=== PATIENT | male | born 1970 | race Caucasian/White ===

== ENCOUNTER 2020-11-29 17:17 | Inpatient (IN) | payer BC, SELFPAY ==
[~2020-11-29] VITALS: Ht 180.3 cm; Wt 90.0 kg
[2020-11-29 17:19] VITALS: Ht 180.3 cm; Wt 90.0 kg
[2020-11-29 19:00] LABS: BASOPHIL % 0.1 % (0.2-1.5); PLATELET COUNT 385 x10^3mcL (152-348); RED CELL DISTRIBUTION WIDTH 15.5 % (12.1-16.2)
[2020-11-29 19:20] LABS: ALKALINE PHOSPHATASE 77 U/L (46-116); ALT/SGPT 28 U/L (16-63); AST/SGOT 46 U/L (15-37); CALCIUM 9.4 mg/dL (8.5-10.1); CARBON DIOXIDE 21.1 mmol/L (21-32); CHLORIDE SERUM 89 mmol/L (98-107); CREATININE SERUM 1.8 mg/dL (0.7-1.3); GFR1 43 mL/min; POTASSIUM SERUM 4.3 mmol/L (3.5-5.1); SODIUM SERUM 127 mmol/L (136-145); TOTAL PROTEIN, SERUM 7.4 g/dL (6.4-8.2)
[2020-11-29 19:28] LABS: ALBUMIN 2.5 g/dL (3.4-5.0)
[2020-11-29 19:30] LABS: GLUCOSE SERUM 547 mg/dL (74-106)
[2020-11-29 19:50] LABS: LACTIC DEHYDROGENASE (LDH) 813 U/L (100-190)
[2020-11-29 20:17] LABS: microscopic required? YES; urine erythrocyte 2+ (NEGATIVE)
[2020-11-30] MEDS ORDERED: TRULICITY0.75 MG/0. SC (06:12)
[2020-11-30] MEDS ORDERED: METFORMIN HCL1000 MG PO (06:12)
[2020-11-30] MEDS ORDERED: ACTOS45 M1 PO (06:12)
[2020-11-30] MEDS ORDERED: FENOFIBRATE145 M1 PO (06:13)
[2020-11-30 16:19] LABS: BASOPHIL % 0.2 % (0.2-1.5); PLATELET COUNT 172 x10^3mcL (152-348)
[2020-11-30 16:24] LABS: RED CELL DISTRIBUTION WIDTH 14.7 % (12.1-16.2)
[2020-11-30 16:36] LABS: CALCIUM 9.3 mg/dL (8.5-10.1); CARBON DIOXIDE 25.7 mmol/L (21-32); CHLORIDE SERUM 94 mmol/L (98-107); CREATININE SERUM 1.1 mg/dL (0.7-1.3); GFR1 > 60 mL/min; GLUCOSE SERUM 296 mg/dL (74-106); MAGNESIUM 2.6 mg/dL (1.8-2.4); PHOSPHOROUS 2.3 mg/dL (2.5-4.9); POTASSIUM SERUM 4.7 mmol/L (3.5-5.1); SODIUM SERUM 130 mmol/L (136-145)
[2020-11-30 21:13] VITALS: BP 120/87
[2020-12-01 00:18] VITALS: BP 124/85
[2020-12-01 06:58] VITALS: BP 120/82
[2020-12-01 07:22] LABS: BASOPHIL % 0.4 % (0.2-1.5); PLATELET COUNT 160 x10^3mcL (152-348)
[2020-12-01 07:57] LABS: ALKALINE PHOSPHATASE 108 U/L (46-116); ALT/SGPT 26 U/L (16-63); AST/SGOT 47 U/L (15-37); CALCIUM 9.1 mg/dL (8.5-10.1); CARBON DIOXIDE 25.1 mmol/L (21-32); CHLORIDE SERUM 95 mmol/L (98-107); CREATININE SERUM 0.9 mg/dL (0.7-1.3); GFR1 > 60 mL/min; GLUCOSE SERUM 228 mg/dL (74-106); POTASSIUM SERUM 4.1 mmol/L (3.5-5.1); SODIUM SERUM 134 mmol/L (136-145); TOTAL PROTEIN, SERUM 6.3 g/dL (6.4-8.2)
[2020-12-01 08:34] LABS: RED CELL DISTRIBUTION WIDTH 15.3 % (12.1-16.2)
[2020-12-01 08:52] LABS: BILIRUBIN DIRECT 0.54 mg/dL (0.0-0.2); BILIRUBIN TOTAL 1.07 mg/dL (0.20-1.00)
[2020-12-01 09:07] VITALS: BP 121/92
[2020-12-01 09:09] LABS: ALBUMIN 2.1 g/dL (3.4-5.0); TOTAL PROTEIN, SERUM 6.1 g/dL (6.4-8.2)
[2020-12-01 12:14] VITALS: BP 120/84
[2020-12-01 17:29] VITALS: BP 107/75
[2020-12-01 20:30] VITALS: BP 115/85
[2020-12-02 06:24] VITALS: BP 125/83
[2020-12-02 09:51] VITALS: BP 115/71
[2020-12-02 12:59] VITALS: BP 112/73
[2020-12-02 13:43] LABS: BILIRUBIN DIRECT 0.63 mg/dL (0.0-0.2); BILIRUBIN TOTAL 1.26 mg/dL (0.20-1.00); TOTAL PROTEIN, SERUM 6.4 g/dL (6.4-8.2)
[2020-12-02 13:50] LABS: ALKALINE PHOSPHATASE 145 U/L (46-116); ALT/SGPT 28 U/L (16-63); AST/SGOT 63 U/L (15-37); BILIRUBIN TOTAL 1.3 mg/dL (0.20-1.00); CALCIUM 9.3 mg/dL (8.5-10.1); CHLORIDE SERUM 95 mmol/L (98-107); GFR1 > 60 mL/min; GLUCOSE SERUM 111 mg/dL (74-106); POTASSIUM SERUM 3.4 mmol/L (3.5-5.1); SODIUM SERUM 135 mmol/L (136-145); TOTAL PROTEIN, SERUM 6.9 g/dL (6.4-8.2)
[2020-12-02 13:53] LABS: ALBUMIN 2.4 g/dL (3.4-5.0); PLATELET COUNT 190 x10^3mcL (152-348)
[2020-12-02 14:00] LABS: ALBUMIN 2.4 g/dL (3.4-5.0)
[2020-12-02 14:09] LABS: RED CELL DISTRIBUTION WIDTH 15.4 % (12.1-16.2)
[2020-12-02 17:11] VITALS: BP 109/84
[2020-12-02 17:15] LABS: BAND NEUTROPHIL 7 % (0-10); BASOPHIL 0 % (0-2); MONOCYTE 3 % (0-7); SEGMENTED NEUTROPHILS 88 % (37-75)
[2020-12-02 17:17] LABS: PLATELET MORPHOLOGY PLATELETS NORMAL; rbc morphology (normal/abnorm) NORMAL (NORMAL)
[2020-12-02 21:54] VITALS: BP 102/75
[2020-12-03 05:05] VITALS: BP 113/80
[2020-12-03 09:23] VITALS: BP 103/76
[2020-12-03 10:03] LABS: ALKALINE PHOSPHATASE 123 U/L (46-116); ALT/SGPT 27 U/L (16-63); AST/SGOT 56 U/L (15-37); BILIRUBIN TOTAL 1.5 mg/dL (0.20-1.00); CALCIUM 9.1 mg/dL (8.5-10.1); CARBON DIOXIDE 30.4 mmol/L (21-32); CHLORIDE SERUM 94 mmol/L (98-107); GLUCOSE SERUM 92 mg/dL (74-106); POTASSIUM SERUM 3.9 mmol/L (3.5-5.1); SODIUM SERUM 135 mmol/L (136-145); TOTAL PROTEIN, SERUM 6.2 g/dL (6.4-8.2)
[2020-12-03 10:09] LABS: PLATELET COUNT 198 x10^3mcL (152-348)
[2020-12-03 10:10] LABS: ALBUMIN 2.4 g/dL (3.4-5.0)
[2020-12-03 10:28] LABS: RED CELL DISTRIBUTION WIDTH 15.7 % (12.1-16.2)
[2020-12-03 10:37] LABS: BILIRUBIN DIRECT 0.57 mg/dL (0.0-0.2); BILIRUBIN TOTAL 1.6 mg/dL (0.20-1.00)
[2020-12-03 10:40] LABS: ALBUMIN 2.3 g/dL (3.4-5.0)
[2020-12-03 11:02] LABS: CREATININE SERUM 0.9 mg/dL (0.7-1.3); GFR1 > 60 mL/min
[2020-12-03 13:35] VITALS: BP 96/74
[2020-12-03 18:19] LABS: BAND NEUTROPHIL 7 % (0-10); BASOPHIL 0 % (0-2); MONOCYTE 2 % (0-7); SEGMENTED NEUTROPHILS 86 % (37-75)
[2020-12-03 18:22] LABS: PLATELET MORPHOLOGY PLATELETS NORMAL; rbc morphology (normal/abnorm) NORMAL (NORMAL)
[2020-12-03 22:22] VITALS: BP 110/87
[2020-12-04 06:11] VITALS: BP 110/78
[2020-12-04 08:45] LABS: ALKALINE PHOSPHATASE 114 U/L (46-116); ALT/SGPT 23 U/L (16-63); AST/SGOT 43 U/L (15-37); BILIRUBIN TOTAL 1.1 mg/dL (0.20-1.00); CALCIUM 9.6 mg/dL (8.5-10.1); CARBON DIOXIDE 32.7 mmol/L (21-32); CHLORIDE SERUM 93 mmol/L (98-107); CREATININE SERUM 0.9 mg/dL (0.7-1.3); GFR1 > 60 mL/min; GLUCOSE SERUM 119 mg/dL (74-106); POTASSIUM SERUM 3.2 mmol/L (3.5-5.1); SODIUM SERUM 132 mmol/L (136-145); TOTAL PROTEIN, SERUM 6.8 g/dL (6.4-8.2)
[2020-12-04 08:47] LABS: ALBUMIN 2.2 g/dL (3.4-5.0)
[2020-12-04 09:04] LABS: BASOPHIL % 0.2 % (0.2-1.5); PLATELET COUNT 242 x10^3mcL (152-348)
[2020-12-04 09:06] VITALS: BP 108/75
[2020-12-04 09:22] LABS: BILIRUBIN DIRECT 0.57 mg/dL (0.0-0.2); BILIRUBIN TOTAL 1.1 mg/dL (0.20-1.00); TOTAL PROTEIN, SERUM 6.3 g/dL (6.4-8.2)
[2020-12-04 09:40] LABS: ALBUMIN 2.2 g/dL (3.4-5.0)
[2020-12-04 11:36] LABS: RED CELL DISTRIBUTION WIDTH 15.8 % (12.1-16.2)
[2020-12-04 12:33] VITALS: BP 110/80
[2020-12-04 18:21] VITALS: BP 95/64
[2020-12-04 20:43] VITALS: BP 102/75
[2020-12-05 05:06] VITALS: BP 98/73
[2020-12-05 08:35] LABS: PLATELET COUNT 206 x10^3mcL (152-348)
[2020-12-05 08:47] LABS: RED CELL DISTRIBUTION WIDTH 15.7 % (12.1-16.2)
[2020-12-05 09:05] LABS: ALKALINE PHOSPHATASE 114 U/L (46-116); ALT/SGPT 30 U/L (16-63); AST/SGOT 47 U/L (15-37); BILIRUBIN TOTAL 1.16 mg/dL (0.20-1.00); CALCIUM 9.6 mg/dL (8.5-10.1); CARBON DIOXIDE 31.9 mmol/L (21-32); CHLORIDE SERUM 97 mmol/L (98-107); GFR1 > 60 mL/min; GLUCOSE SERUM 171 mg/dL (74-106); POTASSIUM SERUM 4.9 mmol/L (3.5-5.1); SODIUM SERUM 137 mmol/L (136-145)
[2020-12-05 09:14] LABS: ALBUMIN 2.1 g/dL (3.4-5.0)
[2020-12-05 10:05] VITALS: BP 99/73
[2020-12-05 13:20] LABS: BAND NEUTROPHIL 3 % (0-10); MONOCYTE 4 % (0-7); PLATELET MORPHOLOGY PLATELETS NORMAL; SEGMENTED NEUTROPHILS 88 % (37-75); rbc morphology (normal/abnorm) NORMAL (NORMAL)
[2020-12-05 13:22] VITALS: BP 94/71
[2020-12-05 23:22] VITALS: BP 97/65
[2020-12-06 05:49] VITALS: BP 97/68
[2020-12-06 07:51] LABS: PLATELET COUNT 248 x10^3mcL (152-348)
[2020-12-06 07:59] LABS: RED CELL DISTRIBUTION WIDTH 15.5 % (12.1-16.2)
[2020-12-06 08:20] VITALS: BP 122/76
[2020-12-06 08:43] LABS: CALCIUM 9.6 mg/dL (8.5-10.1); CARBON DIOXIDE 29.5 mmol/L (21-32); CHLORIDE SERUM 96 mmol/L (98-107); GFR1 > 60 mL/min; GLUCOSE SERUM 159 mg/dL (74-106); POTASSIUM SERUM 4.3 mmol/L (3.5-5.1); SODIUM SERUM 136 mmol/L (136-145)
[2020-12-06 13:15] LABS: BAND NEUTROPHIL 1 % (0-10); MONOCYTE 4 % (0-7); SEGMENTED NEUTROPHILS 89 % (37-75)
[2020-12-06 13:35] VITALS: BP 85/58
[2020-12-06 14:06] LABS: rbc morphology (normal/abnorm) NORMAL (NORMAL)
[2020-12-06 18:37] VITALS: BP 117/73
[2020-12-06 20:53] VITALS: BP 106/77
[2020-12-07 08:17] LABS: BASOPHIL % 0.2 % (0.2-1.5)
[2020-12-07 08:20] LABS: PLATELET COUNT 257 x10^3mcL (152-348)
[2020-12-07 08:38] LABS: RED CELL DISTRIBUTION WIDTH 15.6 % (12.1-16.2)
[2020-12-07 09:02] VITALS: BP 135/84
[2020-12-07 09:18] LABS: CALCIUM 9.8 mg/dL (8.5-10.1); CARBON DIOXIDE 25.2 mmol/L (21-32); CHLORIDE SERUM 95 mmol/L (98-107); CREATININE SERUM 1.1 mg/dL (0.7-1.3); GFR1 > 60 mL/min; GLUCOSE SERUM 211 mg/dL (74-106); POTASSIUM SERUM 3.6 mmol/L (3.5-5.1); SODIUM SERUM 135 mmol/L (136-145)
[2020-12-07 12:58] VITALS: BP 111/77
[2020-12-07 16:18] VITALS: BP 115/70
[2020-12-07 20:41] VITALS: BP 106/82
[2020-12-08 04:48] VITALS: BP 108/74
[2020-12-08 09:26] VITALS: BP 102/76
[2020-12-08 10:25] LABS: CALCIUM 10.6 mg/dL (8.5-10.1); CARBON DIOXIDE 31.9 mmol/L (21-32); CHLORIDE SERUM 95 mmol/L (98-107); GFR1 > 60 mL/min; GLUCOSE SERUM 230 mg/dL (74-106); POTASSIUM SERUM 3.7 mmol/L (3.5-5.1); SODIUM SERUM 136 mmol/L (136-145)
[2020-12-08 11:37] LABS: C REACTIVE PROTEIN 28.4 mg/dL (<=0.9)
[2020-12-08 14:02] VITALS: BP 103/77
[2020-12-08 15:23] LABS: BASOPHIL % 1.2 % (0.2-1.5); PLATELET COUNT 241 x10^3mcL (152-348)
[2020-12-08 15:44] LABS: RED CELL DISTRIBUTION WIDTH 16.1 % (12.1-16.2)
[2020-12-08 18:25] VITALS: BP 101/77
[2020-12-08 21:45] VITALS: BP 122/74
[2020-12-09 07:35] VITALS: BP 90/64
[2020-12-09 11:30] VITALS: BP 128/77
[2020-12-09 12:00] VITALS: BP 101/57
[2020-12-09 12:06] LABS: PLATELET COUNT 211 x10^3mcL (152-348)
[2020-12-09 12:08] LABS: RED CELL DISTRIBUTION WIDTH 15.9 % (12.1-16.2)
[2020-12-09 12:18] LABS: CALCIUM 9.7 mg/dL (8.5-10.1); CARBON DIOXIDE 31.4 mmol/L (21-32); CREATININE SERUM 1.4 mg/dL (0.7-1.3); POTASSIUM SERUM 4.9 mmol/L (3.5-5.1)
[2020-12-09 13:56] LABS: BAND NEUTROPHIL 4 % (0-10); MONOCYTE 3 % (0-7); PLATELET MORPHOLOGY PLATELETS NORMAL; SEGMENTED NEUTROPHILS 89 % (37-75); rbc morphology (normal/abnorm) ABNORMAL (NORMAL)
[2020-12-09 14:32] VITALS: BP 96/60
[2020-12-09 15:28] VITALS: BP 99/65
[2020-12-09 20:00] VITALS: BP 105/66
[2020-12-10] VITALS (9 sets, daily range): BP systolic 91–114; BP diastolic 55–73
[2020-12-10 06:30] LABS: CALCIUM 9.5 mg/dL (8.5-10.1); CARBON DIOXIDE 35.2 mmol/L (21-32); CREATININE SERUM 1.4 mg/dL (0.7-1.3); POTASSIUM SERUM 4.6 mmol/L (3.5-5.1)
[2020-12-10 06:33] LABS: BASOPHIL % 0.1 % (0.2-1.5); PLATELET COUNT 156 x10^3mcL (152-348)
[2020-12-10 18:12] LABS: UA SPECIFIC GRAVITY >=1.030 (1.005-1.035); microscopic required? YES; urine erythrocyte 3+ (NEGATIVE)
[2020-12-11] VITALS (7 sets, daily range): BP systolic 96–121; BP diastolic 69–78
[2020-12-11 06:55] LABS: PLATELET COUNT 206 x10^3mcL (152-348)
[2020-12-11 07:10] LABS: CALCIUM 9.3 mg/dL (8.5-10.1); CARBON DIOXIDE 31.7 mmol/L (21-32); POTASSIUM SERUM 4.8 mmol/L (3.5-5.1)
[2020-12-11 07:17] LABS: CREATININE SERUM 4.4 mg/dL (0.7-1.3)
[2020-12-11 07:59] LABS: RED CELL DISTRIBUTION WIDTH 16.1 % (12.1-16.2)
[2020-12-11 13:30] LABS: ATYPICAL LYMPH 5 %; SEGMENTED NEUTROPHILS 92 % (37-75)
[2020-12-11 13:31] LABS: rbc morphology (normal/abnorm) ABNORMAL (NORMAL)
[2020-12-12] VITALS (8 sets, daily range): BP systolic 97–128; BP diastolic 67–92
[2020-12-12 07:24] LABS: BASOPHIL % 0.1 % (0.2-1.5); PLATELET COUNT 146 x10^3mcL (152-348)
[2020-12-12 07:28] LABS: RED CELL DISTRIBUTION WIDTH 15.9 % (12.1-16.2)
[2020-12-12 07:53] LABS: CALCIUM 9.7 mg/dL (8.5-10.1); CARBON DIOXIDE 35.8 mmol/L (21-32); CREATININE SERUM 1.9 mg/dL (0.7-1.3); POTASSIUM SERUM 3.8 mmol/L (3.5-5.1)
[2020-12-12 17:54] LABS: BILIRUBIN DIRECT 0.68 mg/dL (0.0-0.2); BILIRUBIN TOTAL 1.22 mg/dL (0.20-1.00)
[2020-12-12 17:56] LABS: ALBUMIN 2.9 g/dL (3.4-5.0); TOTAL PROTEIN, SERUM 5.9 g/dL (6.4-8.2)
[2020-12-13] VITALS (8 sets, daily range): BP systolic 94–130; BP diastolic 63–78
[2020-12-13 07:08] LABS: BASOPHIL % 0.2 % (0.2-1.5)
[2020-12-13 07:43] LABS: CHLORIDE SERUM 111 mmol/L (98-107); GFR1 > 60 mL/min; GLUCOSE SERUM 258 mg/dL (74-106); MAGNESIUM 2.8 mg/dL (1.8-2.4); PHOSPHOROUS 2.4 mg/dL (2.5-4.9); SODIUM SERUM 152 mmol/L (136-145)
[2020-12-13 08:24] LABS: CARBON DIOXIDE 38.9 mmol/L (21-32)
[2020-12-13 09:19] LABS: PLATELET COUNT 86 x10^3mcL (152-348); RED CELL DISTRIBUTION WIDTH 15.6 % (12.1-16.2)
[2020-12-14] VITALS (7 sets, daily range): BP systolic 95–143; BP diastolic 68–97
[2020-12-14 06:45] LABS: ALKALINE PHOSPHATASE 98 U/L (46-116); ALT/SGPT 18 U/L (16-63); AST/SGOT 18 U/L (15-37); BILIRUBIN TOTAL 0.71 mg/dL (0.20-1.00); CHLORIDE SERUM 106 mmol/L (98-107); CREATININE SERUM 0.9 mg/dL (0.7-1.3); GFR1 > 60 mL/min; GLUCOSE SERUM 343 mg/dL (74-106); MAGNESIUM 2.5 mg/dL (1.8-2.4); PHOSPHOROUS 2.5 mg/dL (2.5-4.9); POTASSIUM SERUM 4.4 mmol/L (3.5-5.1); SODIUM SERUM 147 mmol/L (136-145); TOTAL PROTEIN, SERUM 6.2 g/dL (6.4-8.2)
[2020-12-14 06:50] LABS: ALBUMIN 2.4 g/dL (3.4-5.0)
[2020-12-14 06:52] LABS: CARBON DIOXIDE 40.4 mmol/L (21-32)
[2020-12-14 07:08] LABS: BASOPHIL % 0.3 % (0.2-1.5)
[2020-12-14 07:38] LABS: C REACTIVE PROTEIN 22.2 mg/dL (<=0.9)
[2020-12-14 08:16] LABS: PLATELET COUNT 127 x10^3mcL (152-348)
[2020-12-15] VITALS (10 sets, daily range): BP systolic 94–122; BP diastolic 66–75
[2020-12-15 06:24] LABS: BASOPHIL % 0.7 % (0.2-1.5); PLATELET COUNT 160 x10^3mcL (152-348)
[2020-12-15 06:59] LABS: ALKALINE PHOSPHATASE 100 U/L (46-116); ALT/SGPT 18 U/L (16-63); AST/SGOT 15 U/L (15-37); BILIRUBIN TOTAL 0.59 mg/dL (0.20-1.00); CALCIUM 9.7 mg/dL (8.5-10.1); CHLORIDE SERUM 107 mmol/L (98-107); CREATININE SERUM 0.8 mg/dL (0.7-1.3); GFR1 > 60 mL/min; GLUCOSE SERUM 238 mg/dL (74-106); MAGNESIUM 2.6 mg/dL (1.8-2.4); PHOSPHOROUS 3.4 mg/dL (2.5-4.9); SODIUM SERUM 149 mmol/L (136-145); TOTAL PROTEIN, SERUM 6.2 g/dL (6.4-8.2)
[2020-12-15 07:18] LABS: ALBUMIN 2.4 g/dL (3.4-5.0)
[2020-12-15 07:20] LABS: CARBON DIOXIDE 41.8 mmol/L (21-32)
[2020-12-15 07:39] LABS: RED CELL DISTRIBUTION WIDTH 15.4 % (12.1-16.2)
[2020-12-15 09:53] LABS: C REACTIVE PROTEIN 13.1 mg/dL (<=0.9)
[2020-12-16] VITALS (8 sets, daily range): BP systolic 97–110; BP diastolic 61–72
[2020-12-16 06:09] LABS: PLATELET COUNT 169 x10^3mcL (152-348)
[2020-12-16 06:16] LABS: RED CELL DISTRIBUTION WIDTH 15.4 % (12.1-16.2)
[2020-12-16 06:54] LABS: CALCIUM 9.6 mg/dL (8.5-10.1); CHLORIDE SERUM 106 mmol/L (98-107); CREATININE SERUM 0.6 mg/dL (0.7-1.3); GFR1 > 60 mL/min; GLUCOSE SERUM 171 mg/dL (74-106); MAGNESIUM 2.4 mg/dL (1.8-2.4); POTASSIUM SERUM 4.3 mmol/L (3.5-5.1); SODIUM SERUM 148 mmol/L (136-145)
[2020-12-16 06:57] LABS: CARBON DIOXIDE 41.3 mmol/L (21-32)
[2020-12-16 13:53] LABS: BAND NEUTROPHIL 3 % (0-10); BASOPHIL 0 % (0-2); MONOCYTE 4 % (0-7); SEGMENTED NEUTROPHILS 92 % (37-75)
[2020-12-16 13:55] LABS: rbc morphology (normal/abnorm) ABNORMAL (NORMAL)
[2020-12-17] VITALS (7 sets, daily range): BP systolic 97–117; BP diastolic 65–78
[2020-12-17 11:15] LABS: PLATELET COUNT 195 x10^3mcL (152-348)
[2020-12-17 11:21] LABS: RED CELL DISTRIBUTION WIDTH 15.3 % (12.1-16.2)
[2020-12-17 12:19] LABS: CHLORIDE SERUM 106 mmol/L (98-107); CREATININE SERUM 0.6 mg/dL (0.7-1.3); GFR1 > 60 mL/min; GLUCOSE SERUM 193 mg/dL (74-106); POTASSIUM SERUM 4.2 mmol/L (3.5-5.1); SODIUM SERUM 147 mmol/L (136-145)
[2020-12-17 12:25] LABS: CARBON DIOXIDE 42.8 mmol/L (21-32)
[2020-12-17 13:44] LABS: BAND NEUTROPHIL 0 % (0-10); BASOPHIL 0 % (0-2); MONOCYTE 5 % (0-7); SEGMENTED NEUTROPHILS 90 % (37-75); rbc morphology (normal/abnorm) ABNORMAL (NORMAL)
[2020-12-18] VITALS (7 sets, daily range): BP systolic 92–129; BP diastolic 67–85
[2020-12-18 07:15] LABS: ALKALINE PHOSPHATASE 107 U/L (46-116); ALT/SGPT 30 U/L (16-63); AST/SGOT 40 U/L (15-37); BILIRUBIN TOTAL 0.6 mg/dL (0.20-1.00); C REACTIVE PROTEIN 1.5 mg/dL (<=0.9); CHLORIDE SERUM 101 mmol/L (98-107); CREATININE SERUM 0.6 mg/dL (0.7-1.3); GFR1 > 60 mL/min; GLUCOSE SERUM 175 mg/dL (74-106); MAGNESIUM 2.2 mg/dL (1.8-2.4); PHOSPHOROUS 2.4 mg/dL (2.5-4.9); POTASSIUM SERUM 4.1 mmol/L (3.5-5.1); SODIUM SERUM 143 mmol/L (136-145)
[2020-12-18 07:17] LABS: PLATELET COUNT 265 x10^3mcL (152-348)
[2020-12-18 07:24] LABS: ALBUMIN 2.5 g/dL (3.4-5.0); TOTAL PROTEIN, SERUM 5.8 g/dL (6.4-8.2)
[2020-12-18 07:27] LABS: CARBON DIOXIDE 43.3 mmol/L (21-32)
[2020-12-18 07:53] LABS: RED CELL DISTRIBUTION WIDTH 15.3 % (12.1-16.2)
[2020-12-18 14:35] LABS: BAND NEUTROPHIL 3 % (0-10); MONOCYTE 4 % (0-7); PLATELET MORPHOLOGY PLATELETS NORMAL; SEGMENTED NEUTROPHILS 87 % (37-75); rbc morphology (normal/abnorm) ABNORMAL (NORMAL)
[2020-12-19] VITALS (7 sets, daily range): BP systolic 86–155; BP diastolic 52–95
[2020-12-19 06:31] LABS: PLATELET COUNT 202 x10^3mcL (152-348)
[2020-12-19 06:54] LABS: RED CELL DISTRIBUTION WIDTH 15.6 % (12.1-16.2)
[2020-12-19 07:09] LABS: CHLORIDE SERUM 99 mmol/L (98-107); POTASSIUM SERUM 3.6 mmol/L (3.5-5.1); SODIUM SERUM 139 mmol/L (136-145)
[2020-12-19 07:30] LABS: CARBON DIOXIDE 37.5 mmol/L (21-32); CREATININE SERUM 0.5 mg/dL (0.7-1.3); GFR1 > 60 mL/min; GLUCOSE SERUM 171 mg/dL (74-106); PHOSPHOROUS 2.6 mg/dL (2.5-4.9)
[2020-12-20] VITALS (9 sets, daily range): BP systolic 13–132; BP diastolic 57–76
[2020-12-20 07:10] LABS: ALKALINE PHOSPHATASE 108 U/L (46-116); ALT/SGPT 36 U/L (16-63); AST/SGOT 44 U/L (15-37); BILIRUBIN TOTAL 0.69 mg/dL (0.20-1.00); C REACTIVE PROTEIN 1.3 mg/dL (<=0.9); CARBON DIOXIDE 37.8 mmol/L (21-32); CHLORIDE SERUM 98 mmol/L (98-107); CREATININE SERUM 0.6 mg/dL (0.7-1.3); GFR1 > 60 mL/min; GLUCOSE SERUM 208 mg/dL (74-106); MAGNESIUM 2.1 mg/dL (1.8-2.4); PHOSPHOROUS 2.8 mg/dL (2.5-4.9); POTASSIUM SERUM 3.7 mmol/L (3.5-5.1); SODIUM SERUM 136 mmol/L (136-145)
[2020-12-20 07:37] LABS: PLATELET COUNT 220 x10^3mcL (152-348)
[2020-12-20 08:07] LABS: BAND NEUTROPHIL 1 % (0-10); SEGMENTED NEUTROPHILS 83 % (37-75)
[2020-12-20 08:08] LABS: BASOPHIL 0 % (0-2); MONOCYTE 3 % (0-7); rbc morphology (normal/abnorm) ABNORMAL (NORMAL)
[2020-12-20 14:23] LABS: BAND NEUTROPHIL 3 % (0-10); MONOCYTE 2 % (0-7); PLATELET MORPHOLOGY PLATELETS NORMAL; SEGMENTED NEUTROPHILS 89 % (37-75); rbc morphology (normal/abnorm) ABNORMAL (NORMAL)
[2020-12-21] VITALS (11 sets, daily range): BP systolic 88–110; BP diastolic 55–69
[2020-12-21 06:20] LABS: PLATELET COUNT 157 x10^3mcL (152-348)
[2020-12-21 06:41] LABS: CALCIUM 8.3 mg/dL (8.5-10.1); CARBON DIOXIDE 38.9 mmol/L (21-32); CHLORIDE SERUM 100 mmol/L (98-107); CREATININE SERUM 0.5 mg/dL (0.7-1.3); GFR1 > 60 mL/min; GLUCOSE SERUM 257 mg/dL (74-106); MAGNESIUM 2.3 mg/dL (1.8-2.4); PHOSPHOROUS 2.8 mg/dL (2.5-4.9); POTASSIUM SERUM 4.1 mmol/L (3.5-5.1); SODIUM SERUM 139 mmol/L (136-145)
[2020-12-21 12:35] LABS: SEGMENTED NEUTROPHILS 90 % (37-75)
[2020-12-21 12:36] LABS: MONOCYTE 5 % (0-7); rbc morphology (normal/abnorm) ABNORMAL (NORMAL)
[2020-12-22] VITALS (11 sets, daily range): BP systolic 100–132; BP diastolic 71–93
[2020-12-22 06:27] LABS: BASOPHIL % 0.3 % (0.2-1.5); PLATELET COUNT 180 x10^3mcL (152-348)
[2020-12-22 06:41] LABS: ALKALINE PHOSPHATASE 99 U/L (46-116); ALT/SGPT 28 U/L (16-63); AST/SGOT 20 U/L (15-37); BILIRUBIN TOTAL 0.49 mg/dL (0.20-1.00); C REACTIVE PROTEIN 6.8 mg/dL (<=0.9); CALCIUM 8.3 mg/dL (8.5-10.1); CHLORIDE SERUM 99 mmol/L (98-107); CREATININE SERUM 0.5 mg/dL (0.7-1.3); GFR1 > 60 mL/min; GLUCOSE SERUM 236 mg/dL (74-106); MAGNESIUM 1.9 mg/dL (1.8-2.4); PHOSPHOROUS 2.8 mg/dL (2.5-4.9); POTASSIUM SERUM 4.1 mmol/L (3.5-5.1); SODIUM SERUM 140 mmol/L (136-145)
[2020-12-22 07:05] LABS: ALBUMIN 1.9 g/dL (3.4-5.0)
[2020-12-22 07:07] LABS: CARBON DIOXIDE 40.3 mmol/L (21-32)
[2020-12-22 08:20] LABS: RED CELL DISTRIBUTION WIDTH 16.5 % (12.1-16.2)
[2020-12-23] VITALS (10 sets, daily range): BP systolic 100–129; BP diastolic 69–91
[2020-12-23 06:26] LABS: BASOPHIL % 0.4 % (0.2-1.5); PLATELET COUNT 231 x10^3mcL (152-348)
[2020-12-23 06:34] LABS: CALCIUM 7.3 mg/dL (8.5-10.1); CARBON DIOXIDE 38.2 mmol/L (21-32); CHLORIDE SERUM 103 mmol/L (98-107); CREATININE SERUM 0.4 mg/dL (0.7-1.3); GFR1 > 60 mL/min; GLUCOSE SERUM 196 mg/dL (74-106); MAGNESIUM 1.9 mg/dL (1.8-2.4); PHOSPHOROUS 2.1 mg/dL (2.5-4.9); POTASSIUM SERUM 3.7 mmol/L (3.5-5.1); SODIUM SERUM 141 mmol/L (136-145)
[2020-12-23 07:10] LABS: RED CELL DISTRIBUTION WIDTH 17.2 % (12.1-16.2)
[2020-12-24] VITALS (11 sets, daily range): BP systolic 108–136; BP diastolic 74–87
[2020-12-24 07:03] LABS: BASOPHIL % 0.5 % (0.2-1.5); PLATELET COUNT 227 x10^3mcL (152-348)
[2020-12-24 07:19] LABS: CALCIUM 7.6 mg/dL (8.5-10.1); CHLORIDE SERUM 97 mmol/L (98-107); CREATININE SERUM 0.4 mg/dL (0.7-1.3); GFR1 > 60 mL/min; GLUCOSE SERUM 223 mg/dL (74-106); POTASSIUM SERUM 4.1 mmol/L (3.5-5.1); SODIUM SERUM 138 mmol/L (136-145)
[2020-12-24 07:30] LABS: CARBON DIOXIDE 43.5 mmol/L (21-32)
[2020-12-25] VITALS: BP 100/59
[2020-12-25 02:40] VITALS: BP 97/68
[2020-12-25 04:00] VITALS: BP 99/69
[2020-12-25 06:30] LABS: PLATELET COUNT 287 x10^3mcL (152-348)
[2020-12-25 06:33] LABS: RED CELL DISTRIBUTION WIDTH 18.4 % (12.1-16.2)
[2020-12-25 07:16] LABS: C REACTIVE PROTEIN 4.4 mg/dL (<=0.9); CALCIUM 8.7 mg/dL (8.5-10.1); CHLORIDE SERUM 98 mmol/L (98-107); CREATININE SERUM 0.4 mg/dL (0.7-1.3); GFR1 > 60 mL/min; GLUCOSE SERUM 123 mg/dL (74-106); MAGNESIUM 2.2 mg/dL (1.8-2.4); PHOSPHOROUS 2.4 mg/dL (2.5-4.9); POTASSIUM SERUM 3.7 mmol/L (3.5-5.1); SODIUM SERUM 139 mmol/L (136-145)
[2020-12-25 07:38] LABS: CARBON DIOXIDE 41.1 mmol/L (21-32)
[2020-12-25 09:25] VITALS: BP 123/79
[2020-12-25 11:37] LABS: rbc morphology (normal/abnorm) ABNORMAL (NORMAL)
[2020-12-25 11:41] LABS: PLATELET MORPHOLOGY PLATELETS NORMAL
[2020-12-25 11:42] LABS: BAND NEUTROPHIL 5 % (0-10); MONOCYTE 5 % (0-7); SEGMENTED NEUTROPHILS 86 % (37-75)
[2020-12-25 14:05] VITALS: BP 115/75
[2020-12-25 20:00] VITALS: BP 119/86; BP 126/81
[2020-12-26] VITALS (10 sets, daily range): BP systolic 87–154; BP diastolic 54–98
[2020-12-26 06:03] LABS: BASOPHIL % 0.8 % (0.2-1.5); PLATELET COUNT 279 x10^3mcL (152-348)
[2020-12-26 06:25] LABS: RED CELL DISTRIBUTION WIDTH 18.3 % (12.1-16.2)
[2020-12-26 06:34] LABS: C REACTIVE PROTEIN 8.5 mg/dL (<=0.9); CALCIUM 8.4 mg/dL (8.5-10.1); CHLORIDE SERUM 99 mmol/L (98-107); CREATININE SERUM 0.4 mg/dL (0.7-1.3); GFR1 > 60 mL/min; GLUCOSE SERUM 83 mg/dL (74-106); PHOSPHOROUS 2.7 mg/dL (2.5-4.9); POTASSIUM SERUM 3.2 mmol/L (3.5-5.1); SODIUM SERUM 138 mmol/L (136-145)
[2020-12-26 06:36] LABS: CARBON DIOXIDE 43.8 mmol/L (21-32)
[2020-12-27] VITALS (11 sets, daily range): BP systolic 102–151; BP diastolic 45–88
[2020-12-27 06:09] LABS: BASOPHIL % 0.5 % (0.2-1.5); PLATELET COUNT 245 x10^3mcL (152-348)
[2020-12-27 06:33] LABS: CALCIUM 8.6 mg/dL (8.5-10.1); CHLORIDE SERUM 99 mmol/L (98-107); CREATININE SERUM 0.5 mg/dL (0.7-1.3); GFR1 > 60 mL/min; GLUCOSE SERUM 181 mg/dL (74-106); MAGNESIUM 2.1 mg/dL (1.8-2.4); PHOSPHOROUS 3.9 mg/dL (2.5-4.9); POTASSIUM SERUM 5.3 mmol/L (3.5-5.1); SODIUM SERUM 140 mmol/L (136-145)
[2020-12-27 06:50] LABS: RED CELL DISTRIBUTION WIDTH 18.3 % (12.1-16.2)
[2020-12-27 07:13] LABS: ALBUMIN 1.6 g/dL (3.4-5.0)
[2020-12-27 07:15] LABS: CARBON DIOXIDE 43.6 mmol/L (21-32)
[2020-12-27 11:39] LABS: C REACTIVE PROTEIN 32.8 mg/dL (<=0.9)
[2020-12-27 14:56] LABS: CALCIUM 8.4 mg/dL (8.5-10.1); CHLORIDE SERUM 100 mmol/L (98-107); CREATININE SERUM 0.4 mg/dL (0.7-1.3); GFR1 > 60 mL/min; GLUCOSE SERUM 130 mg/dL (74-106); POTASSIUM SERUM 4.2 mmol/L (3.5-5.1); SODIUM SERUM 139 mmol/L (136-145)
[2020-12-27 15:09] LABS: CARBON DIOXIDE 44.9 mmol/L (21-32)
[2020-12-27 22:44] LABS: CALCIUM 8.8 mg/dL (8.5-10.1); CHLORIDE SERUM 98 mmol/L (98-107); CREATININE SERUM 0.4 mg/dL (0.7-1.3); GFR1 > 60 mL/min; GLUCOSE SERUM 154 mg/dL (74-106); SODIUM SERUM 138 mmol/L (136-145)
[2020-12-27 22:54] LABS: CARBON DIOXIDE > 45.0 mmol/L (21-32)
[2020-12-28] VITALS (12 sets, daily range): BP systolic 81–124; BP diastolic 46–81
[2020-12-28 06:34] LABS: BASOPHIL % 0.6 % (0.2-1.5); PLATELET COUNT 215 x10^3mcL (152-348)
[2020-12-28 06:42] LABS: RED CELL DISTRIBUTION WIDTH 18.8 % (12.1-16.2)
[2020-12-28 06:52] LABS: CALCIUM 8.1 mg/dL (8.5-10.1); CHLORIDE SERUM 97 mmol/L (98-107); CREATININE SERUM 0.4 mg/dL (0.7-1.3); GFR1 > 60 mL/min; MAGNESIUM 1.8 mg/dL (1.8-2.4); PHOSPHOROUS 3.2 mg/dL (2.5-4.9); POTASSIUM SERUM 3.6 mmol/L (3.5-5.1); SODIUM SERUM 135 mmol/L (136-145)
[2020-12-28 07:33] LABS: ALBUMIN 1.4 g/dL (3.4-5.0); C REACTIVE PROTEIN 34.3 mg/dL (<=0.9); GLUCOSE SERUM 50 mg/dL (74-106)
[2020-12-28 14:59] LABS: CALCIUM 8.9 mg/dL (8.5-10.1); CHLORIDE SERUM 98 mmol/L (98-107); CREATININE SERUM 0.5 mg/dL (0.7-1.3); GFR1 > 60 mL/min; GLUCOSE SERUM 120 mg/dL (74-106); SODIUM SERUM 138 mmol/L (136-145)
[2020-12-28 15:07] LABS: CARBON DIOXIDE 43.8 mmol/L (21-32)
[2020-12-28 22:42] LABS: CALCIUM 9.1 mg/dL (8.5-10.1); CHLORIDE SERUM 95 mmol/L (98-107); CREATININE SERUM 0.5 mg/dL (0.7-1.3); GFR1 > 60 mL/min; GLUCOSE SERUM 134 mg/dL (74-106); POTASSIUM SERUM 3.7 mmol/L (3.5-5.1); SODIUM SERUM 137 mmol/L (136-145)
[2020-12-28 22:44] LABS: CARBON DIOXIDE 44.8 mmol/L (21-32)
[2020-12-28 23:01] LABS: BILIRUBIN TOTAL 1.03 mg/dL (0.20-1.00)
[2020-12-28 23:03] LABS: ALBUMIN 1.3 g/dL (3.4-5.0); TOTAL PROTEIN, SERUM 5.7 g/dL (6.4-8.2)
[2020-12-28 23:10] LABS: BILIRUBIN DIRECT 0.8 mg/dL (0.0-0.2)
[2020-12-29 02:05] VITALS: BP 90/60
[2020-12-29 03:05] VITALS: BP 92/62
[2020-12-29 06:09] LABS: CALCIUM 8.8 mg/dL (8.5-10.1); CHLORIDE SERUM 96 mmol/L (98-107); CREATININE SERUM 0.5 mg/dL (0.7-1.3); GFR1 > 60 mL/min; GLUCOSE SERUM 113 mg/dL (74-106); POTASSIUM SERUM 3.7 mmol/L (3.5-5.1); SODIUM SERUM 137 mmol/L (136-145)
[2020-12-29 06:17] LABS: CARBON DIOXIDE > 45.0 mmol/L (21-32)
[2020-12-29 07:36] VITALS: BP 89/54
[2020-12-29 07:57] LABS: PLATELET COUNT 126 x10^3mcL (152-348); RED CELL DISTRIBUTION WIDTH 18.6 % (12.1-16.2)
[2020-12-29 09:02] LABS: BAND NEUTROPHIL 3 % (0-10); MONOCYTE 3 % (0-7); SEGMENTED NEUTROPHILS 88 % (37-75)
[2020-12-29 09:03] LABS: rbc morphology (normal/abnorm) ABNORMAL (NORMAL)
[2020-12-29 09:04] LABS: PLATELET MORPHOLOGY PLATELETS DECREASED
[2020-12-29 10:34] LABS: BASOPHIL % 0.7 % (0.2-1.5)
[2020-12-29 10:36] LABS: PLATELET COUNT 112 x10^3mcL (152-348); RED CELL DISTRIBUTION WIDTH 17.7 % (12.1-16.2)
[2020-12-29 15:58] LABS: CALCIUM 8.7 mg/dL (8.5-10.1); CHLORIDE SERUM 94 mmol/L (98-107); CREATININE SERUM 0.8 mg/dL (0.7-1.3); GFR1 > 60 mL/min; GLUCOSE SERUM 265 mg/dL (74-106); POTASSIUM SERUM 4.1 mmol/L (3.5-5.1); SODIUM SERUM 131 mmol/L (136-145)
[2020-12-29 16:00] LABS: CARBON DIOXIDE 42.9 mmol/L (21-32)
[2020-12-29 16:55] LABS: PLATELET COUNT 120 x10^3mcL (152-348); RED CELL DISTRIBUTION WIDTH 18.4 % (12.1-16.2)
[2020-12-29 17:10] VITALS: BP 106/72
[2020-12-29 17:53] VITALS: BP 88/55
[2020-12-29 18:26] LABS: BAND NEUTROPHIL 6 % (0-10); BASOPHIL 0 % (0-2); MONOCYTE 4 % (0-7); SEGMENTED NEUTROPHILS 78 % (37-75)
[2020-12-29 18:27] LABS: rbc morphology (normal/abnorm) ABNORMAL (NORMAL)
[2020-12-29 18:32] LABS: PLATELET MORPHOLOGY PLATELETS NORMAL
== END 2020-12-30 03:39 | DRG 870 ==
LOC: ED 17:17 → DU 19:45 → IC 19:45 → DU 23:39 → IW 12-09 05:35 → IC 12-09 07:33
PROVIDERS: Emergency Medicine; Internal Medicine; Internal Medicine Infectious Disease; ADMIT Family Medicine; ATTEND Family Medicine
PROC: XW033E5 Introduction of Remdesivir Anti-infective into Peripheral Vein, Percutaneous Approach, New Technology Group 5 (ICD-10-PCS; 2020-11-30)
PROC: 5A09557 Assistance with Respiratory Ventilation, Greater than 96 Consecutive Hours, Continuous Positive Airway Pressure (ICD-10-PCS; 2020-12-01)
PROC: 5A1955Z Respiratory Ventilation, Greater than 96 Consecutive Hours (ICD-10-PCS; principal; 2020-12-09)
PROC: 0BH17EZ Insertion of Endotracheal Airway into Trachea, Via Natural or Artificial Opening (ICD-10-PCS; 2020-12-09)
DX: A41.89 Other specified sepsis (principal); U07.1 COVID-19; J12.82 Pneumonia due to coronavirus disease 2019; N17.0 Acute kidney failure with tubular necrosis; J96.01 Acute respiratory failure with hypoxia; I21.3 ST elevation (STEMI) myocardial infarction of unspecified site; R65.21 Severe sepsis with septic shock; G93.41 Metabolic encephalopathy; E87.1 Hypo-osmolality and hyponatremia; D62 Acute posthemorrhagic anemia; I10 Essential (primary) hypertension; E11.9 Type 2 diabetes mellitus without complications; E11.65 Type 2 diabetes mellitus with hyperglycemia; D69.6 Thrombocytopenia, unspecified; E87.6 Hypokalemia; I46.9 Cardiac arrest, cause unspecified; R33.9 Retention of urine, unspecified; R31.9 Hematuria, unspecified
CPT/HCPCS: 31500; 36600; 82962; 83880; 85378; 87804; A4628; C9113; G0378; J0456; J0610; J0692; J0696; J1100; J1630; J1642; J1644; J1650; J1815; J1940; J2060; J2250; J2370; J2543; J2704; J2920; J2997; J3010; J3370; J3480; J3486; J3490; J3535; J7030; J7040; J7050; J7131; P9016; P9047; Q0163; U0003